=== PATIENT | female | born 1935 | race American Indian/Alaskan Native ===

== ENCOUNTER 2017-07-27 17:53 | Emergency (ER) | payer MEDICARE, OTHER ==
[2017-07-27 18:27] VITALS: BP 149/52
[2017-07-27] MEDS ORDERED: Ketorolac 30 MG/ML SDV IM ONE (19:37)
--- NOTE | 2017-07-27 19:43 | EDM.PDOC ---
ED HPI GENERAL MEDICAL PROBLEM - General Stated Complaint: NECK PAIN [id number] Time Seen by Provider: 07/27/17 19:38 Source of Information: Reports: Patient History Limitations: Reports: No Limitations - History of Present Illness INITIAL COMMENTS - FREE TEXT/NARRATIVE: woke with left neck pain Tuesday took tylenol tried hot pack not going away not seen anyone. denies trauma to area. no radiation to arms. hurts on one spot on left side. 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, Other (see below) Other Treatments TELEPHONE STATION REPAIRER: warm pack Left Neck Pain Score (Numeric/FACES): 9 - Related Data Allergies Allergy/AdvReac Type Severity Reaction Status Date / Time No Known Allergies Allergy Verified 11/26/15 23:39 Home Meds: Home Meds Aspirin [Adult Low Dose Aspirin EC] 1 tab PO DAILY 09/20/15 [History] Losartan [Cozaar] 1 tab PO DAILY 09/20/15 [History] Simvastatin [Zocor] 1 tab PO DAILY 09/20/15 [History] Hydrochlorothiazide 50 mg PO DAILY 07/27/17 [History] Multivit &Minerals/Ferrous Fum [Complete Multivit-Mineral] 5 mg PO DAILY [History] amLODIPine Besylate [Amlodipine Besylate] 10 mg PO DAILY 07/27/17 [History] glipiZIDE [Glucotrol XL] 5 mg PO BID 07/27/17 [History] metFORMIN HCl [Metformin HCl] 1,000 mg PO BID 07/27/17 [History] Past Medical History Cardiovascular History: Reports: High Cholesterol, Hypertension Musculoskeletal History: Reports: Osteoarthritis Endocrine/Metabolic History: Reports: Diabetes, Type II - Past Surgical History HEENT Surgical History: Reports: Cataract Surgery Social & Family History - Family History Family Medical History: Unobtainable - Caffeine Use Caffeine Use: Reports: None ED ROS GENERAL - Review of Systems Review Of Systems: ROS reveals no pertinent complaints other than HPI. ED EXAM, UPPER BACK/NECK PAIN - Physical Exam Exam: See Below Exam Limited By: No Limitations General Appearance: Alert, WD/WN, Mild Distress, Other (left neck doscomfort) Ears Exam: Hearing Grossly Normal Throat/Mouth Exam: Normal Voice, No Airway Compromise Head Exam: Atraumatic Neck Exam: Paraspinous Muscle Tender, Other (left) Nexus Criteria: No: Posterior, Midline Cervical Tenderness, Evidence of Intoxication, Altered Level of Consciousness, Focal Neurological Deficit, Painful Distraction Injuries Cardiovascular/Respiratory: Regular Rate, Rhythm, No Respiratory Distress GI/Abdominal: Soft, Non-Tender Extremities: Pedal Edema, Other (2+ bilateral without s/s cellulitis) Neurologic: No Motor/Sensory Deficits, Alert, Normal Mood/Affect, Oriented x 3 Psychiatric: Normal Affect, Normal Mood Skin Exam: Normal Color, Warm/Dry Lymphatic: No Adenopathy Course - Vital Signs Last Recorded V/S: Last Vital Signs Temp 36.6 C 07/27/17 18:25 Pulse 74 07/27/17 18:25 Resp 18 07/27/17 18:25 BP 149/52 H 07/27/17 18:25 Pulse Ox 95 07/27/17 18:25 - Orders/Labs/Meds Meds: Medications Discontinued Medications Generic Name Dose Route Start Last Admin Trade Name Freq PRN Reason Stop Dose Admin Ketorolac Tromethamine 30 mg 07/27/17 19:37 07/27/17 20:05 Toradol IM 07/27/17 19:38 30 mg ONETIME ONE Administration - Re-Assessments/Exams Free Text/Narrative Re-Assessment/Exam: 07/27/17 20:15 results discussed with pt who is feeling much better s/p IM toradol. pt now c/o leg swelling today, takes HCTZ. Departure - Departure Time of Disposition: 20:16 Disposition: Home, Self-Care 01 Condition: Good Clinical Impression: Arthralgia, cervical spine, Leg edema - Discharge Information Instructions: Edema, [id number] Referrals: Shayan Richardson [Primary Care Provider] - Forms: ED Department Discharge Additional Instructions: 1) elevate legs as much as possible next 48 hours 2) may take an extra HCTZ on Tuesday if leg swelling not going away and recheck if it is not helping 3) try heat pad to sore neck 4) return if there is any change or concern
== END 2017-07-27 20:28 | disposition home or self-care (01) ==
LOC: DL.ED 17:53
DX: M54.2 Cervicalgia (principal); R60.0 Localized edema; E11.9 Type 2 diabetes mellitus without complications; Z79.82 Long term (current) use of aspirin; Z79.899 Other long term (current) drug therapy
CPT/HCPCS: 72040; 96374; 99283; J1885

== ENCOUNTER 2022-12-22 21:08 | Emergency (ER) | payer MEDICARE, OTHER ==
[2022-12-22 21:31] LABS: BASOPHILS PERCENT AUTO 0.1 % (0.0-1.0); EOSINOPHILS PERCENT AUTO 0.5 % (1.0-3.0); HEMATOCRIT 29.2 % (37.0-47.0); HEMOGLOBIN 11.7 g/dL (12.0-16.0); LYMPHOCYTES PERCENT AUTO 2.9 % (20.5-50.1); MEAN CORPUSCULAR HGB CONC 40.1 g/dL (33.0-35.0); MEAN CORPUSCULAR VOLUME 84.9 fL (80-100); MONOCYTES PERCENT AUTO 8.5 % (2-8); PLATELET COUNT,PLT 196 10^3/uL (150-450); RED BLOOD CELL COUNT 3.44 10^6/uL (4.2-5.4); WHITE BLOOD CELL COUNT,WBC 12.4 10^3/uL (5.0-10.0)
[2022-12-22 21:50] LABS: A/G RATIO 0.48; ALBUMIN 2.4 g/dL (3.4-5.0); ANION GAP 16.3 mEq/L (7-13); BILIRUBIN TOTAL 0.4 mg/dL (0.2-1.0); BUN/CREATININE RATIO 24.2 (No establ ref range); CREATININE 1.2 mg/dL (0.55-1.02); EST CRCL DRUG DOSING (CG) 27.44 mL/min; POTASSIUM,K 3.3 mmol/L (3.5-5.1); PROTEIN TOTAL,TP 7.4 g/dL (6.4-8.2)
[2022-12-22 21:52] VITALS: BP 139/43; PULSE 75
[2022-12-22 21:52] LABS: C-REACTIVE PROTEIN 19.49 ng/dL (<=0.30)
[2022-12-22 22:06] LABS: CORONAVIRUS COVID-19 NAA NEGATIVE (NEGATIVE); INFLUENZA A NAA NEGATIVE (NEGATIVE); INFLUENZA B NAA NEGATIVE (NEGATIVE); RESPIRATORY SYNCYTIAL VIR NAA NEGATIVE (NEGATIVE)
[2022-12-22] MEDS ORDERED: cefTRIAXone 1 GM Vial IVPUSH ONE (22:30)
[2022-12-22] MEDS ORDERED: Azithromycin 500 MG in Sodium Chloride 0.9% 250 ML IV ONE (22:32)
[2022-12-22] MEDS ORDERED: Sodium Chloride 0.9% 1,000 ML IV ONE (23:08)
== END 2022-12-22 23:40 | disposition critical access hospital (66) ==
LOC: DL.ED 21:08
DX: J15.9 Unspecified bacterial pneumonia (principal); E78.00 Pure hypercholesterolemia, unspecified; E11.9 Type 2 diabetes mellitus without complications; I10 Essential (primary) hypertension; Z20.822 Contact with and (suspected) exposure to COVID-19; Z86.73 Personal history of transient ischemic attack (TIA), and cerebral infarction without residual deficits; Z79.82 Long term (current) use of aspirin; Z79.84 Long term (current) use of oral hypoglycemic drugs; Z79.899 Other long term (current) drug therapy
CPT/HCPCS: 0241U; 36415; 71045; 80053; 83605; 83880; 84484; 85025; 86140; 93005; 96365; 96375; 99285-25; J0456; J0696; J7030; J7050